=== PATIENT | male | born 1935 | race African-American/Black ===

== ENCOUNTER 2020-08-14 11:09 | Outpatient (CLI) | payer OTHER ==
[~2020-08-14 11:09] MED LIST: AVALIDE 150-12.1 TA1 PO; LIPITOR20 MG PO
== END 2020-08-14 11:22 | disposition home or self-care (01) ==
LOC: RAD 11:09
PROVIDERS: ATTEND Orthopaedic Surgery
DX: M25.562 Pain in left knee (principal); M25.561 Pain in right knee

== ENCOUNTER → 2020-08-16 | Outpatient (CLI) | payer OTHER | END | disposition home or self-care (01) | LOC: MRI 09:45 | PROVIDERS: ATTEND Orthopaedic Surgery | DX: M25.562 Pain in left knee (principal) | CPT/HCPCS: 73721 ==

== ENCOUNTER 2020-08-30 09:52 | Outpatient (CLI) | payer OTHER | END 2020-08-30 09:57 | disposition home or self-care (01) | LOC: RAD 09:52 | PROVIDERS: ATTEND Orthopaedic Surgery | DX: R07.89 Other chest pain (principal) ==

== ENCOUNTER 2021-04-20 12:02 | Emergency (ER) | payer OTHER ==
[~2021-04-20] VITALS: Ht 175.3 cm; Wt 70.3 kg
[2021-04-20] MEDS ORDERED: COZAAR50 MG PO (12:16)
[2021-04-20] MEDS ORDERED: SIMVASTATIN5 MG (12:16)
[2021-04-20] MEDS ORDERED: TAMS0.4C PO (12:17)
[2021-04-20] MEDS ORDERED: ULTRAM50 MG PO (14:52)
== END 2021-04-20 14:59 | disposition home or self-care (01) ==
LOC: ER 12:02
DX: M79.661 Pain in right lower leg (principal); Z86.79 Personal history of other diseases of the circulatory system

== ENCOUNTER 2021-04-23 10:13 | Emergency (ER) | payer OTHER ==
[~2021-04-23] VITALS: Ht 170.2 cm; Wt 70.3 kg
[~2021-04-23 10:13] MED LIST changes: +COZAAR50 MG PO; +SIMVASTATIN5 MG; +TAMS0.4C PO; +ULTRAM50 MG PO
== END 2021-04-23 14:39 | disposition home or self-care (01) ==
LOC: ER 10:13
DX: M54.59 Other low back pain (principal); E78.00 Pure hypercholesterolemia, unspecified; I10 Essential (primary) hypertension; R30.0 Dysuria

== ENCOUNTER 2021-05-22 08:00 | Outpatient (CLI) | payer OTHER | END 2021-05-22 08:30 | disposition home or self-care (01) | LOC: PPH VACUNA 08:00 | PROVIDERS: ATTEND Emergency Medicine Pediatric Emergency Medicine | DX: Z23 Encounter for immunization (principal) ==

== ENCOUNTER 2022-01-07 14:33 | Emergency (ER) | payer OTHER ==
[~2022-01-07] VITALS: Ht 180.3 cm; Wt 70.3 kg
== END 2022-01-07 20:52 | disposition home or self-care (01) ==
LOC: ER 14:33
DX: R42 Dizziness and giddiness (principal)

== ENCOUNTER 2022-10-15 14:42 | Emergency (ER) | payer OTHER ==
[~2022-10-15] VITALS: Ht 172.7 cm; Wt 72.6 kg
== END 2022-10-16 11:24 | disposition home or self-care (01) ==
LOC: ER 14:42
PROVIDERS: General Practice
DX: E86.0 Dehydration (principal); S09.8XXA Other specified injuries of head, initial encounter; W18.39XA Other fall on same level, initial encounter; Y93.89 Activity, other specified; Y92.018 Other place in single-family (private) house as the place of occurrence of the external cause; I10 Essential (primary) hypertension; N40.0 Benign prostatic hyperplasia without lower urinary tract symptoms; E78.00 Pure hypercholesterolemia, unspecified; M62.82 Rhabdomyolysis
CPT/HCPCS: 70450; 71110; 96365; 96366; 99284; J7030